=== PATIENT | male | born 1960 | race Caucasian/White ===

== ENCOUNTER → 2019-05-01 11:49 | Outpatient (BNVA) | payer MEDICAID, SELFPAY | PROVIDERS: Visit Provider Nurse Practitioner Family | DX: K21.9 Gastro-esophageal reflux disease without esophagitis (principal); E78.5 Hyperlipidemia, unspecified | CPT/HCPCS: 80053; 80061; 85025 ==

== ENCOUNTER 2019-05-16 08:53 | Day surgery (SDC) | payer MEDICAID, SELFPAY ==
[2019-05-15 08:24] VITALS: BMI 30.2
--- NOTE | 2019-05-16 09:09 | ANES.PREANE2 ---
Pre-Anesthetic Assessment Pre-Anesthetic Assessment: Height/Weight: Height 1.73 m Weight 90.265 kg Preop Diagnosis: epigastric pain Proposed Procedure: Operation Date: 05/16/19 09:45 Proposed Procedures p EGD 87140 R10.11(Not Applicable) - Stuart Zaragoza MD Familial anesthetic complications: none Was Beta Rti taken within 24 hours: Yes Last Intake: 06:30 Social: Social History: Alcohol (daily) and Tobacco Exam: Pre-Anes Outpt Exam: alert, oriented x 3, clear to auscultation bilaterally and regular rate & rhythm Airway: Submandibular: WNL Cervical ROM: WNL MP: 2 (full pina) Dentition: Chipped History/ROS: No significant history except as noted Pulmonary: Pulmonary: COPD and SOB CV/HEM: CV/HEM: HTN : : None reported Hepatic: Hepatic: None reported GI: GI: GERD and PUD Metabolic: Metabolic: Hyperlipidemia Musc/skel: Musc/skel: Lower Back Pain Neuropsych: Neuropsych: Bipolar Anesthetic Plan: ASA status: 2 Anesthesia: Anesthesia Evaluation and MAC Risk of > 500 ml blood loss (7ml/kg in children): No PFSH Anesthesia PFSH: Social History Smoking and tobacco status: current every day smoker cigarettes Packs smoked per day: 1.5 Years cigarettes smoked: 30 Alcohol intake: current Alcohol intake frequency: 3 or more drinks per day Alcohol type: beer Lives independently: Yes Household members: spouse Housing: House Marital status: Current occupational status: disabled History of recent travel: No Current gender identity: Male Data Anesthesia Cardiac Studies: No Data to Display
--- NOTE | 2019-05-16 09:11 | W.PM.OPSUD ---
Surgery/Procedure H&P Update DATE OF PROCEDURE: May 16, 2019 DATE H&P PERFORMED: 05/13/19 PREOP DIAGNOSIS: b PLANNED PROCEDURE: Operation Date: 05/16/19 09:45 Proposed Procedures p EGD 54471 R10.11(Not Applicable) - Stuart Zaragoza MD
[2019-05-16 09:17] VITALS: BP 153/83; PULSE 99; RESP 18; TEMP 36.4; O2SAT 97
[2019-05-16] MEDS: sodium chloride 0.9% 1,000 ML 30 ML (09:19)
[2019-05-16 10:12] VITALS: BP 117/77; PULSE 104; RESP 16; TEMP 37.1; O2SAT 99
--- NOTE | 2019-05-16 10:20 | ANE.PACU2 ---
 Inpatient post-anesthesia follow up: Airway intact: Yes Vital signs: Temperature 98.8 F Pulse Rate 104 Respiratory Rate 16 Blood Pressure 117/77 Pulse Oximetry 99 Oxygen Delivery Me thod Room Air Oxygen Flow Rate Fraction of Inspir ed Oxygen Hydration adequate: Yes Nausea and vomiting: No Mental status: Baseline
[2019-05-16 10:23] VITALS: BP 122/84; PULSE 90; RESP 18; O2SAT 97
== END 2019-05-16 10:33 | disposition home or self-care (01) ==
PROVIDERS: Visit Provider Internal Medicine
PROC: 0DJ08ZZ Inspection of Upper Intestinal Tract, Via Natural or Artificial Opening Endoscopic (ICD-10-PCS; CPT 43235; principal; 2019-05-16 09:45)
DX: R10.13 Epigastric pain (principal); I10 Essential (primary) hypertension; Z87.11 Personal history of peptic ulcer disease; Z82.49 Family history of ischemic heart disease and other diseases of the circulatory system; Z83.3 Family history of diabetes mellitus; F17.210 Nicotine dependence, cigarettes, uncomplicated; J44.9 Chronic obstructive pulmonary disease, unspecified; K21.9 Gastro-esophageal reflux disease without esophagitis; E78.5 Hyperlipidemia, unspecified
CPT/HCPCS: 12345; 43235; J2704; J7030

== ENCOUNTER 2019-05-30 10:26 | Outpatient (CLI) | payer MEDICAID, SELFPAY ==
--- NOTE | 2019-05-30 10:15 | US_ITS ---
WS: [id number] Gallbladder ultrasound, 05/30/2019 Clinical Data: Right upper quadrant pain Comparison: Gallbladder ultrasound, 07/10/2018. Findings: The gallbladder shows no sludge or stone. The wall measures 0.2 cm with no pericholecystic fluid. The common bile duct is 0.4 cm and there are no intrahepatic ductal abnormalities. Liver shows no cysts, masses or dilated intrahepatic ducts. The liver measures 11.17 cm in greatest A P diameter. There is fatty infiltration. The pancreas is not obscured by overlying bowel gas, and no cyst, pseudocyst, or evidence of pancreat itis is noted. Right kidney measures 4.93 x 5.26 x 8.7 cm and no cyst, masses or hydronephrosis can be seen. The aorta and inferior vena cava show no vascular abnormalities. US/US gall bladder [id number] Impression: Negative gallbladder.
== END 2019-05-30 10:27 | disposition home or self-care (01) ==
PROVIDERS: Family Provider Family Medicine; PCP Family Medicine; Visit Provider Internal Medicine
DX: R10.11 Right upper quadrant pain (principal); R10.13 Epigastric pain
CPT/HCPCS: 76705

== ENCOUNTER → 2019-08-27 16:20 | Outpatient (BNVA) | payer MEDICAID, SELFPAY | PROVIDERS: Family Provider Family Medicine; PCP Family Medicine; Visit Provider Nurse Practitioner | DX: Z87.891 Personal history of nicotine dependence (principal); R19.7 Diarrhea, unspecified | CPT/HCPCS: 71046; 74018; 81000 ==

== ENCOUNTER 2019-08-29 14:00 | Outpatient (CLI) | payer MEDICAID, SELFPAY ==
[2019-08-29 14:35] LABS: Basophils % 0.2 %; Eosinophils % 0.5 %; Hematocrit 36.7 % (42.0-52.0); Hemoglobin 11.6 g/dL (11.7-16.6); Lymphocytes # 1.3 10^3/uL (0.8-4.8); Lymphocytes % 23.1 %; Mean Corpuscular HGB Conc 31.6 g/dL (30.0-36.0); Mean Corpuscular Hemoglobin 33.3 pg (28.0-34.0); Mean Corpuscular Volume 105.5 fL (80-94); Mean Platelet Volume 8.9 fL (7.4-10.4); Monocytes # 0.7 10^3/uL (0.2-0.9); Monocytes % 11.2 %; Neutrophils # 3.8 10^3/uL (1.8-7.7); Neutrophils % 64.5 %; Nucleated Red Blood Cells % 0.5 %; Platelet Count 193 10^3/cmm (130-400); Red Blood Count 3.48 10^6/uL (4.1-5.3); Red Cell Distribution Width 12.2 % (12.1-15.1); White Blood Count 5.8 10^3/uL (4.0-10.0)
[2019-08-29 14:55] LABS: Albumin Level 4.5 g/dL (3.5-5.2); Alkaline Phosphatase 68 IU/L (40-130); Chloride 100 mmol/L (98-107); Potassium 4.3 mmol/L (3.5-5.1); Sodium 134 mmol/L (136-145)
[2019-08-29 17:02] LABS: Alanine Aminotransferase 65 U/L (0-41); Anion Gap 21.3 (5-19); Aspartate Amino Transferase 76 U/L (0-40); Blood Urea Nitrogen 15 mg/dL (6-20); Calcium 9.2 mg/dL (8.5-10.5); Carbon Dioxide 17 mmol/L (22-29); Chol HDL Ratio 2.14 mg/dL (1.0-5.00); Cholesterol 163 mg/dL (0-200); Globulin 2.8 g/dL (1.3-4.6); Glomerular Filtration Rate 69.2 mL/min (90-130); Glucose 102 mg/dL (65-115); HDL Cholesterol 76 mg/dL (60-100); LDL Cholesterol Calculated 61 mg/dL (50-129); Magnesium 1.7 mg/dL (1.7-2.3); Osmolality Calculated 274 mOsm/kg (285-295); Total Bilirubin 0.3 mg/dL (0.15-1.2); Total Protein 7.3 g/dL (6.6-8.7); Triglycerides 131 mg/dL (0-150); VLDL Cholestrol Calculation 26 mg/dL (0-30); Vitamin B12 429 pg/mL (232-1245)
[2019-08-29 17:03] LABS: 25 Hydroxy Vitamin D 11 ng/mL (30-100)
== END 2019-08-29 14:01 | disposition home or self-care (01) ==
LOC: LAB 14:05
PROVIDERS: PCP Nurse Practitioner; Visit Provider Nurse Practitioner
DX: K21.9 Gastro-esophageal reflux disease without esophagitis (principal); Z87.891 Personal history of nicotine dependence
CPT/HCPCS: 36415; 80053; 80061; 82306; 82607; 83735; 85025

== ENCOUNTER 2019-10-07 13:15 | Outpatient (CLI) | payer MEDICAID, SELFPAY ==
[2019-10-07 13:52] LABS: Basophils % 0.2 %; Eosinophils % 0.8 %; Hematocrit 29.1 % (42.0-52.0); Hemoglobin 9.9 g/dL (11.7-16.6); Lymphocytes # 0.8 10^3/uL (0.8-4.8); Lymphocytes % 16.8 %; Mean Corpuscular Hemoglobin 34.4 pg (28.0-34.0); Monocytes # 0.4 10^3/uL (0.2-0.9); Neutrophils # 3.55 10^3/uL (1.8-7.7); Neutrophils % 72.8 %; Nucleated Red Blood Cells % 0 %; Platelet Count 184 10^3/cmm (130-400); Red Blood Count 2.88 10^6/uL (4.1-5.3); Red Cell Distribution Width 11.9 % (12.1-15.1); White Blood Count 4.9 10^3/uL (4.0-10.0)
[2019-10-07 14:27] LABS: Alanine Aminotransferase 48 U/L (0-41); Albumin Level 4.1 g/dL (3.5-5.2); Alkaline Phosphatase 59 IU/L (40-130); Anion Gap 16.3 (5-19); Aspartate Amino Transferase 24 U/L (0-40); Blood Urea Nitrogen 6 mg/dL (6-20); Calcium 8.7 mg/dL (8.5-10.5); Carbon Dioxide 19 mmol/L (22-29); Chloride 98 mmol/L (98-107); Globulin 2.3 g/dL (1.3-4.6); Glucose 85 mg/dL (65-115); Osmolality Calculated 263 mOsm/kg (285-295); Potassium 4.3 mmol/L (3.5-5.1); Sodium 129 mmol/L (136-145); Thyroid Stimulating Hormone 0.81 uIU/mL (0.27-4.20); Total Bilirubin 0.2 mg/dL (0.15-1.2); Total Protein 6.4 g/dL (6.6-8.7)
[2019-10-07 14:36] LABS: Hepatitis A Antibody IgM Non-Reactive (Nonreactive); Hepatitis B Core AB, Total Non-Reactive (Nonreactive); Hepatitis B Surface AB 3.5 (0-8.5); Hepatitis B Surface Antigen Non-Reactive (Nonreactive); Hepatitis C Virus Antibody Non-Reactive (Nonreactive)
== END 2019-10-07 13:16 | disposition home or self-care (01) ==
LOC: LAB 13:20
PROVIDERS: PCP Nurse Practitioner; Visit Provider Nurse Practitioner
DX: D69.6 Thrombocytopenia, unspecified (principal); E87.1 Hypo-osmolality and hyponatremia; Z11.59 Encounter for screening for other viral diseases
CPT/HCPCS: 80053; 84443; 85025; 86705; 86706; 86709; 86803; 87340

== ENCOUNTER → 2019-10-09 14:43 | Outpatient (BNVA) | payer MEDICAID, SELFPAY | PROVIDERS: PCP Nurse Practitioner; Visit Provider Nurse Practitioner Family | DX: M79.89 Other specified soft tissue disorders (principal); D69.6 Thrombocytopenia, unspecified; L03.119 Cellulitis of unspecified part of limb; M79.604 Pain in right leg; M79.605 Pain in left leg | CPT/HCPCS: 80053; 85025 ==

== ENCOUNTER 2020-02-26 12:02 | Outpatient (CLI) | payer MEDICAID, SELFPAY ==
[2020-02-26 12:59] LABS: 25 Hydroxy Vitamin D 48 ng/mL (30-100); Alanine Aminotransferase 44 U/L (0-41); Albumin Level 4.4 g/dL (3.5-5.2); Alkaline Phosphatase 114 IU/L (40-130); Aspartate Amino Transferase 59 U/L (0-40); Blood Urea Nitrogen 20 mg/dL (6-20); Carbon Dioxide 16 mmol/L (22-29); Chloride 92 mmol/L (98-107); Chol HDL Ratio 1.64 mg/dL (1.0-5.00); Cholesterol 154 mg/dL (0-200); Globulin 2.6 g/dL (1.3-4.6); Glomerular Filtration Rate 18.8 mL/min (90-130); Glucose 106 mg/dL (65-115); HDL Cholesterol 94 mg/dL (60-100); LDL Cholesterol Calculated 44 mg/dL (50-129); Osmolality Calculated 257 mOsm/kg (285-295); Sodium 122 mmol/L (136-145); Total Bilirubin 0.5 mg/dL (0.15-1.2); Triglycerides 79 mg/dL (0-150); VLDL Cholestrol Calculation 16 mg/dL (0-30)
[2020-02-26 13:22] LABS: Basophils % 0.1 %; Eosinophils % 0.4 %; Hematocrit 33.8 % (42.0-52.0); Hemoglobin 11.5 g/dL (11.7-16.6); Lymphocytes # 1.2 10^3/uL (0.8-4.8); Lymphocytes % 17.4 %; Mean Corpuscular Hemoglobin 32.7 pg (28.0-34.0); Mean Platelet Volume 10.2 fL (7.4-10.4); Monocytes # 0.7 10^3/uL (0.2-0.9); Monocytes % 9.3 %; Neutrophils % 72.2 %; Nucleated Red Blood Cells % 0 %; Platelet Count 222 10^3/cmm (130-400); Red Blood Count 3.52 10^6/uL (4.1-5.3); White Blood Count 7.1 10^3/uL (4.0-10.0)
== END 2020-02-26 12:03 | disposition home or self-care (01) ==
LOC: LAB 12:05
PROVIDERS: PCP Nurse Practitioner; Visit Provider Nurse Practitioner
DX: E78.2 Mixed hyperlipidemia (principal); E55.9 Vitamin D deficiency, unspecified; D69.6 Thrombocytopenia, unspecified
CPT/HCPCS: 36415; 80053; 80061; 82306; 85025

== ENCOUNTER → 2020-05-31 14:05 | Outpatient (BNVA) | payer MEDICAID, SELFPAY | PROVIDERS: PCP Nurse Practitioner; Visit Provider Nurse Practitioner | DX: R10.13 Epigastric pain (principal) | CPT/HCPCS: 82270 ==

== ENCOUNTER → 2020-08-19 16:26 | Outpatient (BNVA) | payer MEDICAID, SELFPAY | PROVIDERS: PCP Nurse Practitioner; Visit Provider Nurse Practitioner | DX: K92.1 Melena (principal); R11.0 Nausea; R19.5 Other fecal abnormalities; R19.7 Diarrhea, unspecified | CPT/HCPCS: 87493; 87506; 89125 ==

== ENCOUNTER → 2020-12-02 14:41 | Outpatient (BNVA) | payer MEDICAID, SELFPAY | PROVIDERS: PCP Nurse Practitioner; Visit Provider Nurse Practitioner | DX: R19.5 Other fecal abnormalities (principal) | CPT/HCPCS: 82270; 87506 ==

== ENCOUNTER → 2020-12-08 13:16 | Outpatient (BNVA) | payer MEDICAID, SELFPAY | PROVIDERS: PCP Nurse Practitioner; Visit Provider Nurse Practitioner | DX: I10 Essential (primary) hypertension (principal) | CPT/HCPCS: 80053; 85025 ==

== ENCOUNTER → 2021-02-21 14:36 | Outpatient (BNVA) | payer MEDICAID, SELFPAY | PROVIDERS: PCP Nurse Practitioner; Visit Provider Nurse Practitioner | DX: I10 Essential (primary) hypertension (principal) | CPT/HCPCS: 87493 ==

== ENCOUNTER 2021-04-06 10:21 | Emergency (ER) | payer MEDICAID, SELFPAY ==
[2021-04-06 12:30] VITALS: BP 139/88; PULSE 99; RESP 18; TEMP 36.9; O2SAT 99; BMI 26.1
--- NOTE | 2021-04-06 12:51 | ED_ITS ---
Documented by User: [facility] 04/06/21 12:59 HPI - General Adult General: Chief complaint: Abdominal Pain Stated complaint: CDF Time Seen by Provider: 04/06/21 12:45 History of Present Illness: HPI narrative: Patient presents here with history of chronic C. difficile. Patient's had for 2 years. Patient is requesting a fecal transplant if that is possible. Patient no acute distress does not have any increase in his symptoms. Does have diarrhea which he has had on a regular basis. Onset (ago): year(s) Associated symptoms: Reports other (Chronic diarrhea); Deny chest pain, dyspnea, headache(s), nausea, rash or vomiting Review of Systems Const: Denies: fever(s), chills or body aches Eyes: Denies: change in vision or blurry vision ENMT: Denies: throat pain or nasal congestion Card: Denies: chest pain or dyspnea on exertion Resp: Denies: dyspnea, productive cough or non-productive cough GI: Reports: diarrhea (Chronic, wonder if they could be seen today maybe get a referral for fecal ); Denies: abdominal pain, nausea or vomiting : Denies: difficulty urinating Musc: Denies: extremity pain Skin/Breast: Denies: rash Neuro: Denies: headache(s) Psych: Denies: anxiety or depression Esequiel/Lymph: Denies: easy bruising PFSH ED PFSH: Medical History (Updated 04/06/21 @ 12:49 by [facility]) Alcohol abuse Bipolar 1 disorder DDD (degenerative disc disease) Hypertension Mixed hyperlipidemia CHANDRIKA (obstructive sleep apnea) PUD (peptic ulcer disease) Thrombocytopenia Vitamin D deficiency Surgical History No pertinent past surgical history Family History Father Diabetes Rheumatoid arthritis Hypertension Grandfather Diabetes Grandmother Cancer bone Mother Heart disease Social History Second hand smoke exposure: Yes Smoking risk assessment/counseling performed?: Yes Alcohol intake: current Alcohol intake frequency: 3 or more drinks per day Alcohol type: beer Desire information about alcohol rehabilitation?: No Counseling given: No Desire information about substance/drug rehabilitation?: No Counseling given: No Adopted: No Caregiver/support person: No Lives independently: Yes Household members: spouse Housing: House Marital status: Number of children: 3 service: No Current occupational status: disabled Current occupational exposures/hazards: No History of recent travel: No Current gender identity: Male Physical Exam Const: COMMON NORMALS: no acute distress GENERAL APPEARANCE: cooperative Resp: COMMON NORMALS: normal respiratory effort EFFORT & INSPECTION: Yes able to speak in complete sentences GI: COMMON NORMALS: Normal to inspection, nondistended, normoactive bowel sounds present Psych: COMMON NORMALS: mental status grossly normal Course Vital Signs: Vital signs: Vital Signs Temperature 98.4 F 04/06/21 12:30 Pulse Rate 99 04/06/21 12:30 Respiratory Rate 18 04/06/21 12:30 Blood Pressure 139/88 04/06/21 12:30 Pulse Oximetry 99 04/06/21 12:30 MDM - General Adult MDM Narrative Medical decision making narrative: Patient presents here with 2-year history of C. difficile. Has been on antibiotics in the past with some relief. Patient has no change in symptoms from the previous 2 years but they have been reading some clinic Internet and about getting a fecal transplant and they are interested in seeing a provider today stating to referral for fecal transplant. Patient no acute distress not having abdominal pain just has chronic diarrhea. There is go to [facility]. Patient was placed on antibiotics and antidiarrheal and encouraged follow-up with primary care for possible referral. Patient has seen gastroenterology twice in the last 2 years. Discharge Plan Discharge Patient Disposition: Home Clinical Impression: Clostridium difficile colitis Condition: Stable Prescriptions: New Lomotil 2.5-0.025 mg tablet 1 tab PO TID PRN (Reason: diarrhea) Qty: 14 0RF clindamycin HCl 300 mg capsule 300 mg PO Q8H 7 Days Qty: 21 0RF Bactrim DS 800-160 mg tablet 1 tab PO BID 7 Days Qty: 14 0RF No Action acetaminophen [Tylenol Extra Strength] 500 mg tablet 500 mg PO Q6H PRN (Reason: Pain) 0RF Xarelto 10 mg tablet 10 mg PO DAILY Qty: 30 2RF Hold Instructions: Bleeding albuterol sulfate [ProAir HFA] 90 mcg/actuation HFA aerosol inhaler 2 puff inhalation Q6H PRN (Reason: shortness of breath or wheezing) Qty: 18 2RF cilostazol 100 mg tablet 100 mg PO BID Qty: 60 2RF ergocalciferol (vitamin D2) 1,250 mcg (50,000 unit) capsule 1,250 mcg PO .weekly Qty: 4 2RF lisinopril 20 mg tablet 20 mg PO DAILY Qty: 30 2RF metoprolol succinate 25 mg tablet extended release 24 hr 25 mg PO DAILY Qty: 30 2RF Vitamin Plus Low Iron 27 mg iron- 1 mg tablet 1 tab PO DAILY Qty: 30 2RF rosuvastatin 40 mg tablet 40 mg PO DAILY Qty: 30 2RF sertraline [Zoloft] 50 mg tablet 50 mg PO DAILY Qty: 30 2RF quetiapine 300 mg tablet 300 mg PO DAILY Qty: 30 2RF sodium chloride 1 gram tablet 1,000 mg PO TID Qty: 90 2RF sucralfate [Carafate] 1 gram tablet 1 g PO TID Qty: 90 2RF pantoprazole 40 mg tablet,delayed release (DR/EC) 40 mg PO DAILY Qty: 30 2RF Discharge Orders: Discharge ED (Routine); Ordered 04/06/21 Ordered By: Jr Gomes Referrals: Corinna De León, [facility] [Primary Care Provider] - Discharge Diet: Advance as tolerated Discharge Activity: Resume usual activity Activity Restrictions/Additional Instructions: Follow-up with medical provider as directed. Take medications as prescribed. Return to the ER or your medical provider if condition worsens. Please read and understand discharge instructions. If any questions ask please. Coding Level of Care Code ED Parking Inspector for Chg Fwd Exam Expanded Problem Focused Documented by User: Kristian Guillory DO 04/12/21 06:17 HPI - General Adult General: Chief complaint: Abdominal Pain Stated complaint: CDF Time Seen by Provider: 04/06/21 12:45 PFSH ED PFSH: Medical History (Updated 04/06/21 @ 12:49 by [facility]) Alcohol abuse Bipolar 1 disorder DDD (degenerative disc disease) Hypertension Mixed hyperlipidemia CHANDRIKA (obstructive sleep apnea) PUD (peptic ulcer disease) Thrombocytopenia Vitamin D deficiency Surgical History No pertinent past surgical history Family History Father Diabetes Rheumatoid arthritis Hypertension Grandfather Diabetes Grandmother Cancer bone Mother Heart disease Social History Second hand smoke exposure: Yes Smoking risk assessment/counseling performed?: Yes Alcohol intake: current Alcohol intake frequency: 3 or more drinks per day Alcohol type: beer Desire information about alcohol rehabilitation?: No Counseling given: No Desire information about substance/drug rehabilitation?: No Counseling given: No Adopted: No Caregiver/support person: No Lives independently: Yes Household members: spouse Housing: House Marital status: Number of children: 3 service: No Current occupational status: disabled Current occupational exposures/hazards: No History of recent travel: No Current gender identity: Male Course Vital Signs: Vital signs: Vital Signs Temperature 98.4 F 04/06/21 12:30 Pulse Rate 99 04/06/21 12:30 Respiratory Rate 18 04/06/21 12:30 Blood Pressure 139/88 04/06/21 12:30 Pulse Oximetry 99 04/06/21 12:30 MDM - General Adult MDM Narrative Medical decision making narrative: Chart reviewed and patient discussed with midlevel. Agree with assessment and plan. Discharge Plan Discharge Patient Disposition: Home Clinical Impression: Clostridium difficile colitis Condition: Stable Prescriptions: New Lomotil 2.5-0.025 mg tablet 1 tab PO TID PRN (Reason: diarrhea) Qty: 14 0RF clindamycin HCl 300 mg capsule 300 mg PO Q8H 7 Days Qty: 21 0RF Bactrim DS 800-160 mg tablet 1 tab PO BID 7 Days Qty: 14 0RF No Action acetaminophen [Tylenol Extra Strength] 500 mg tablet 500 mg PO Q6H PRN (Reason: Pain) 0RF Xarelto 10 mg tablet 10 mg PO DAILY Qty: 30 2RF Hold Instructions: Bleeding albuterol sulfate [ProAir HFA] 90 mcg/actuation HFA aerosol inhaler 2 puff inhalation Q6H PRN (Reason: shortness of breath or wheezing) Qty: 18 2RF cilostazol 100 mg tablet 100 mg PO BID Qty: 60 2RF ergocalciferol (vitamin D2) 1,250 mcg (50,000 unit) capsule 1,250 mcg PO .weekly Qty: 4 2RF lisinopril 20 mg tablet 20 mg PO DAILY Qty: 30 2RF metoprolol succinate 25 mg tablet extended release 24 hr 25 mg PO DAILY Qty: 30 2RF Vitamin Plus Low Iron 27 mg iron- 1 mg tablet 1 tab PO DAILY Qty: 30 2RF rosuvastatin 40 mg tablet 40 mg PO DAILY Qty: 30 2RF sertraline [Zoloft] 50 mg tablet 50 mg PO DAILY Qty: 30 2RF quetiapine 300 mg tablet 300 mg PO DAILY Qty: 30 2RF sodium chloride 1 gram tablet 1,000 mg PO TID Qty: 90 2RF sucralfate [Carafate] 1 gram tablet 1 g PO TID Qty: 90 2RF pantoprazole 40 mg tablet,delayed release (DR/EC) 40 mg PO DAILY Qty: 30 2RF Discharge Orders: Discharge ED (Routine); Ordered 04/06/21 Ordered By: Jr Gomes Referrals: Corinna De León, [facility] [Primary Care Provider] - Discharge Diet: Advance as tolerated Discharge Activity: Resume usual activity Activity Restrictions/Additional Instructions: Follow-up with medical provider as directed. Take medications as prescribed. Return to the ER or your medical provider if condition worsens. Please read and understand discharge instructions. If any questions ask please. Coding Level of Care Code ED Parking Inspector for Chg Fwd Exam Expanded Problem Focused
== END 2021-04-06 13:05 | disposition home or self-care (01) ==
PROVIDERS: Emergency Provider Nurse Practitioner Family; PCP Nurse Practitioner
DX: A04.72 Enterocolitis due to Clostridium difficile, not specified as recurrent (principal); I10 Essential (primary) hypertension; E78.2 Mixed hyperlipidemia; G47.33 Obstructive sleep apnea (adult) (pediatric); K27.9 Peptic ulcer, site unspecified, unspecified as acute or chronic, without hemorrhage or perforation; E55.9 Vitamin D deficiency, unspecified; Z79.01 Long term (current) use of anticoagulants
CPT/HCPCS: 12345; 99281

== ENCOUNTER → 2021-07-11 15:51 | Outpatient (BNVA) | payer MEDICAID, SELFPAY | PROVIDERS: PCP Nurse Practitioner; Visit Provider Nurse Practitioner | DX: I10 Essential (primary) hypertension (principal) | CPT/HCPCS: 81000 ==

== ENCOUNTER 2021-07-12 13:01 | Outpatient (CLI) | payer MEDICAID, SELFPAY ==
[2021-07-12 13:43] LABS: Basophils % 0.2 %; Eosinophils # 0.1 10^3/uL (0.0-0.8); Eosinophils % 1.2 %; Hematocrit 31.3 % (42.0-52.0); Hemoglobin 9.8 g/dL (11.7-16.6); Lymphocytes # 1.2 10^3/uL (0.8-4.8); Lymphocytes % 20.3 %; Mean Corpuscular HGB Conc 31.3 g/dL (30.0-36.0); Mean Corpuscular Hemoglobin 33.9 pg (28.0-34.0); Mean Corpuscular Volume 108.3 fl (80-94); Mean Platelet Volume 9.9 fL (7.4-10.4); Monocytes # 0.4 10^3/uL (0.2-0.9); Monocytes % 6.3 %; Neutrophils % 71.3 %; Nucleated Red Blood Cells % 0 %; Platelet Count 149 10^3/cmm (130-400); Red Blood Count 2.89 10^6/uL (4.1-5.3); Red Cell Distribution Width 13.5 % (12.1-15.1)
[2021-07-12 14:27] LABS: 25 Hydroxy Vitamin D 53 ng/mL (30-100); Alanine Aminotransferase 54 U/L (0-41); Albumin Level 4.4 g/dL (3.5-5.2); Alkaline Phosphatase 101 IU/L (40-130); Aspartate Amino Transferase 61 U/L (0-40); Blood Urea Nitrogen 28 mg/dL (6-20); Calcium 8.3 mg/dL (8.5-10.5); Carbon Dioxide 14 mmol/L (22-29); Chloride 106 mmol/L (98-107); Glomerular Filtration Rate 44.6 mL/min (90-130); Glucose 78 mg/dL (65-115); Osmolality Calculated 284 mOsm/kg (285-295); Sodium 135 mmol/L (136-145); Thyroid Stimulating Hormone 1.37 uIU/mL (0.27-4.20); Total Bilirubin 0.2 mg/dL (0.15-1.2); Total Protein 7.4 g/dL (6.6-8.7)
== END 2021-07-12 13:02 | disposition home or self-care (01) ==
LOC: LAB 13:03
PROVIDERS: PCP Nurse Practitioner; Visit Provider Nurse Practitioner
DX: E55.9 Vitamin D deficiency, unspecified (principal); I10 Essential (primary) hypertension
CPT/HCPCS: 36415; 80053; 82306; 84443; 85025

== ENCOUNTER → 2021-08-31 11:08 | Outpatient (BNVA) | payer MEDICAID, SELFPAY | PROVIDERS: PCP Nurse Practitioner; Visit Provider Nurse Practitioner | DX: J98.01 Acute bronchospasm (principal); I73.9 Peripheral vascular disease, unspecified; N18.30 Chronic kidney disease, stage 3 unspecified; E55.9 Vitamin D deficiency, unspecified; I10 Essential (primary) hypertension; K21.9 Gastro-esophageal reflux disease without esophagitis; F10.10 Alcohol abuse, uncomplicated; F31.9 Bipolar disorder, unspecified; E78.2 Mixed hyperlipidemia; R10.13 Epigastric pain; E87.1 Hypo-osmolality and hyponatremia | CPT/HCPCS: 81000 ==

== ENCOUNTER 2021-12-02 11:42 | Outpatient (CLI) | payer MEDICAID, SELFPAY ==
[2021-12-02 12:29] LABS: Basophils % 0.2 %; Eosinophils % 0.8 %; Hematocrit 33.1 % (42.0-52.0); Hemoglobin 10.5 g/dL (11.7-16.6); Lymphocytes % 19.5 %; Mean Corpuscular HGB Conc 31.7 g/dL (30.0-36.0); Mean Corpuscular Hemoglobin 33.1 pg (28.0-34.0); Mean Corpuscular Volume 104.4 fl (80-94); Mean Platelet Volume 10.4 fL (7.4-10.4); Monocytes # 0.5 10^3/uL (0.2-0.9); Monocytes % 9.2 %; Neutrophils # 3.72 10^3/uL (1.8-7.7); Neutrophils % 69.7 %; Nucleated Red Blood Cells % 0 %; Platelet Count 161 10^3/cmm (130-400); Red Blood Count 3.17 10^6/uL (4.1-5.3); Red Cell Distribution Width 13.2 % (12.1-15.1); White Blood Count 5.3 10^3/uL (4.0-10.0)
[2021-12-02 12:41] LABS: Alanine Aminotransferase 53 U/L (0-41); Albumin Level 4.2 g/dL (3.5-5.2); Alkaline Phosphatase 113 U/L (40-130); Anion Gap 18.7 (5-19); Aspartate Amino Transferase 51 U/L (0-40); Blood Urea Nitrogen 21 mg/dL (6-20); Calcium 8.7 mg/dL (8.5-10.5); Carbon Dioxide 15 mmol/L (22-29); Chloride 104 mmol/L (98-107); Chol HDL Ratio 1.65 mg/dL (1.0-5.00); Cholesterol 181 mg/dL (0-200); Globulin 2.9 g/dL (1.3-4.6); Glomerular Filtration Rate 44.5 mL/min (90-130); Glucose 107 mg/dL (65-115); HDL Cholesterol 110 mg/dL (60-100); LDL Cholesterol Calculated 56 mg/dL (50-129); Osmolality Calculated 281 mOsm/kg (285-295); Potassium 3.7 mmol/L (3.5-5.1); Sodium 134 mmol/L (136-145); Total Bilirubin 0.3 mg/dL (0.15-1.2); Total Protein 7.1 g/dL (6.6-8.7); Triglycerides 76 mg/dL (0-150); VLDL Cholestrol Calculation 15 mg/dL (0-30)
[2021-12-02 12:58] LABS: Iron 105 ug/dL (59-158); Percent Saturation 38.7 % (20-50); Total Iron Binding Capacity 271 mcg/dl; Unsaturated Iron Binding 166 ug/dL (112-347)
[2021-12-02 13:15] LABS: Vitamin B12 602 pg/mL (232-1245)
== END 2021-12-02 11:43 | disposition home or self-care (01) ==
LOC: LAB 11:47
PROVIDERS: PCP Nurse Practitioner; Visit Provider Nurse Practitioner
DX: D64.9 Anemia, unspecified (principal); I10 Essential (primary) hypertension; E61.1 Iron deficiency
CPT/HCPCS: 80053; 80061; 82607; 83540; 83550; 85025

== ENCOUNTER → 2021-12-06 11:16 | Outpatient (BNVA) | payer MEDICAID, SELFPAY | PROVIDERS: PCP Nurse Practitioner; Visit Provider Nurse Practitioner | DX: J98.01 Acute bronchospasm (principal); I73.9 Peripheral vascular disease, unspecified; N18.30 Chronic kidney disease, stage 3 unspecified; E55.9 Vitamin D deficiency, unspecified; I10 Essential (primary) hypertension; R00.0 Tachycardia, unspecified; K21.9 Gastro-esophageal reflux disease without esophagitis; F10.10 Alcohol abuse, uncomplicated; F31.9 Bipolar disorder, unspecified; E78.2 Mixed hyperlipidemia; E87.1 Hypo-osmolality and hyponatremia; R10.13 Epigastric pain; J30.89 Other allergic rhinitis | CPT/HCPCS: 81000 ==

== ENCOUNTER → 2022-03-28 11:41 | Outpatient (BNVA) | payer MEDICAID, SELFPAY | PROVIDERS: PCP Nurse Practitioner; Visit Provider Nurse Practitioner | DX: I10 Essential (primary) hypertension (principal); F31.9 Bipolar disorder, unspecified; I73.9 Peripheral vascular disease, unspecified; N18.30 Chronic kidney disease, stage 3 unspecified; J98.01 Acute bronchospasm; J30.89 Other allergic rhinitis; E55.9 Vitamin D deficiency, unspecified; K21.9 Gastro-esophageal reflux disease without esophagitis; R00.0 Tachycardia, unspecified; R10.13 Epigastric pain; E78.2 Mixed hyperlipidemia; F10.10 Alcohol abuse, uncomplicated; E87.1 Hypo-osmolality and hyponatremia | CPT/HCPCS: 81000 ==

== ENCOUNTER → 2022-06-27 12:06 | Outpatient (BNVA) | payer MEDICAID, SELFPAY | PROVIDERS: PCP Nurse Practitioner; Visit Provider Nurse Practitioner | DX: J98.01 Acute bronchospasm (principal); I73.9 Peripheral vascular disease, unspecified; N18.30 Chronic kidney disease, stage 3 unspecified; E55.9 Vitamin D deficiency, unspecified; J30.89 Other allergic rhinitis; R10.13 Epigastric pain; I10 Essential (primary) hypertension; R00.0 Tachycardia, unspecified; K21.9 Gastro-esophageal reflux disease without esophagitis; F10.10 Alcohol abuse, uncomplicated; E78.2 Mixed hyperlipidemia; F31.9 Bipolar disorder, unspecified; E87.1 Hypo-osmolality and hyponatremia | CPT/HCPCS: 81000 ==

== ENCOUNTER 2022-10-27 12:52 | Outpatient (CLI) | payer MEDICAID, SELFPAY ==
[2022-10-27 13:09] LABS: Basophils % 0.3 %; Eosinophils # 0.1 10^3/uL (0.0-0.8); Eosinophils % 0.9 %; Hematocrit 33.3 % (42.0-52.0); Hemoglobin 10.8 g/dL (11.7-16.6); Lymphocytes # 1.6 10^3/uL (0.8-4.8); Lymphocytes % 22.8 %; Mean Corpuscular HGB Conc 32.4 g/dL (30.0-36.0); Mean Corpuscular Hemoglobin 34.1 pg (28.0-34.0); Monocytes # 0.5 10^3/uL (0.2-0.9); Monocytes % 6.9 %; Neutrophils # 4.63 10^3/uL (1.8-7.7); Neutrophils % 68.1 %; Nucleated Red Blood Cells % 0 %; Platelet Count 170 10^3/cmm (130-400); Red Blood Count 3.17 10^6/uL (4.1-5.3); Red Cell Distribution Width 14.9 % (12.1-15.1); White Blood Count 6.8 10^3/uL (4.0-10.0)
[2022-10-27 13:51] LABS: 25 Hydroxy Vitamin D 78 ng/mL (30-100); Alanine Aminotransferase 115 U/L (0-41); Albumin Level 4.1 g/dL (3.5-5.2); Alkaline Phosphatase 160 U/L (40-130); Aspartate Amino Transferase 124 U/L (0-40); Blood Urea Nitrogen 16 mg/dL (8-23); Calcium 9.6 mg/dL (8.5-10.5); Carbon Dioxide 15 mmol/L (22-29); Chloride 103 mmol/L (98-107); Chol HDL Ratio 1.62 mg/dL (1.0-5.00); Cholesterol 181 mg/dL (0-200); Globulin 2.9 g/dL (1.3-4.6); Glomerular Filtration Rate 56.3 mL/min (90-130); Glucose 96 mg/dL (65-115); HDL Cholesterol 112 mg/dL (60-100); LDL Cholesterol Calculated 50 mg/dL (50-129); Osmolality Calculated 277 mOsm/kg (285-295); Sodium 133 mmol/L (136-145); Thyroid Stimulating Hormone 1.28 uIU/mL (0.27-4.20); Total Bilirubin 0.3 mg/dL (0.15-1.2); Triglycerides 97 mg/dL (0-150); VLDL Cholestrol Calculation 19 mg/dL (0-30)
== END 2022-10-27 12:53 | disposition home or self-care (01) ==
PROVIDERS: PCP Nurse Practitioner; Visit Provider Nurse Practitioner
DX: E55.9 Vitamin D deficiency, unspecified (principal); N18.30 Chronic kidney disease, stage 3 unspecified
CPT/HCPCS: 80053; 80061; 82306; 84443; 85025

== ENCOUNTER 2023-03-21 09:07 | Outpatient (CLI) | payer MEDICAID, SELFPAY ==
--- NOTE | 2023-03-21 09:30 | USR_ITS ---
PROCEDURE INFORMATION: Exam: US Abdomen Complete Exam date and time: 03/21/2023 9:51 AM Age: 62 years old Clinical indication: Condition or disease; Other: Anemia; Additional info: D64.9 - anemia, unspecified TECHNIQUE: Imaging protocol: Real-time ultrasound of the abdomen with image documentation. Complete exam. COMPARISON: US abdomen limited 04150 07/10/2018 12:34 PM FINDINGS: Liver: No significant liver pathology. Gallbladder: No significant gallbladder pathology. Biliary ducts: Bile duct measures 6 mm at top limits of normal in size. Pancreas: Visualized pancreas is unremarkable. Right kidney: Right kidney is small in size measuring 6 cm in length. Left kidney measures 10.3 cm in length. Left kidney: See Right kidney finding. Spleen: Normal. No splenomegaly. Aorta: Normal. No aneurysm. Inferior vena cava: Normal. US/US abdomen complete* [id number] IMPRESSION: No acute pathology. Atrophic right kidney.
== END 2023-03-21 09:08 | disposition home or self-care (01) ==
LOC: RAD 09:07
PROVIDERS: PCP Nurse Practitioner; Visit Provider Nurse Practitioner
DX: D64.9 Anemia, unspecified (principal); R10.13 Epigastric pain; N26.1 Atrophy of kidney (terminal)
CPT/HCPCS: 76700

== ENCOUNTER → 2023-05-09 13:55 | Outpatient (BNVA) | payer MEDICAID, SELFPAY | PROVIDERS: PCP Nurse Practitioner; Visit Provider Nurse Practitioner | DX: J44.9 Chronic obstructive pulmonary disease, unspecified (principal); N18.30 Chronic kidney disease, stage 3 unspecified | CPT/HCPCS: 71046; 81000 ==

== ENCOUNTER → 2023-08-01 11:14 | Outpatient (BNVA) | payer MEDICAID, SELFPAY | PROVIDERS: PCP Nurse Practitioner; Visit Provider Nurse Practitioner | DX: K58.0 Irritable bowel syndrome with diarrhea (principal); J44.9 Chronic obstructive pulmonary disease, unspecified; J30.89 Other allergic rhinitis; I73.9 Peripheral vascular disease, unspecified; N18.30 Chronic kidney disease, stage 3 unspecified; E55.9 Vitamin D deficiency, unspecified; I10 Essential (primary) hypertension; R00.0 Tachycardia, unspecified; K21.9 Gastro-esophageal reflux disease without esophagitis; F10.10 Alcohol abuse, uncomplicated; F31.9 Bipolar disorder, unspecified; E78.2 Mixed hyperlipidemia; E87.1 Hypo-osmolality and hyponatremia; R10.13 Epigastric pain; N18.31 Chronic kidney disease, stage 3a; D64.9 Anemia, unspecified; E61.1 Iron deficiency | CPT/HCPCS: 80053; 80061; 81000; 83550; 84443; 85025 ==

== ENCOUNTER → 2023-10-24 13:54 | Outpatient (BNVA) | payer MEDICAID, SELFPAY | PROVIDERS: PCP Nurse Practitioner; Visit Provider Internal Medicine | DX: R07.9 Chest pain, unspecified (principal) | CPT/HCPCS: 93005 ==

== ENCOUNTER 2023-11-26 12:30 | Outpatient (CLI) | payer MEDICAID, SELFPAY ==
--- NOTE | 2023-11-26 12:45 | USCV_ITS ---
Marshall Quispe Age: 63 Gender: M : 1960 Exam Date: 11/26/2023 13:10 Ordering Phys: Vernon Pierce M.D ([email or web address]) Technologist: CT [place] [facility] [place]: Risk Factors: Previous Vascular Surgery: RIGHT LEFT BP: 110.0 / 75.00 BP: 106.0/ 81.00 0 0 Waveform Velocity (cm/s) Velocity (cm/s) Waveform Triphasic 89.5 Iliac Prox 72.3 11 Triphasic 84.7 Iliac Mid 63.5 Triphasic Triphasic 82.0 Iliac Distal 60.4 Triphasic Triphasic 82.0 UTILITY INSPECTOR 59.0 Triphasic Triphasic 81.0 SFA Prox 73.0 Triphasic Triphasic 61.0 SFA Mid 66.0 Triphasic Triphasic 60.0 SFA Dist 45.0 Triphasic Triphasic 60.0 POP 53.0 Triphasic Triphasic 33.0 SHOESHINER 69.0 Triphasic Triphasic 48.0 DPA 89.0 Triphasic JULIEN 1.0 1.1 FINDINGS No significant plaques or any unstable lesions. Resting JULIEN 1.1 on the right and 1.0 on the left. Normal Doppler flow velocities and waveforms CONCLUSIONS Normal resting ABIs bilaterally no evidence of any significant arterial obstruction, based on the above findings. Dr Carlos Patel MD [facility] (Electronically Signed) Final Date: 27 November 2023 09:35 S
--- NOTE | 2023-11-26 13:30 | USCV_ITS ---
Marshall Quispe Age: 63 Gender: M : 1960 Exam Date: 11/26/2023 12:47 Ordering Phys: Vernon Pierce M.D ([email or web address]) Technologist: CT Exam Location: [facility] [place] Indication: BP: 129 / 80 HR: 76 Rhythm: Sinus Technical Quality: Adequate MEASUREMENTS (Male / Female) Normal Values 2D ECHO LVOT Diameter 2.0 cm LV Ejection Fraction MOD 4C 70.0 % LV Ejection Fraction MOD 2C 63.6 % LV Ejection Fraction 2C AL 64.6 % LA Diameter 4.3 cm RA Systolic Volume 4C AL 66.1 ml RA Systolic Volume 4C MOD 63.7 ml LA Sys Volume AL 51.9 cm cubed LA Sys Volume Index AL 25.1 cm cubed/m squared Aorta at Sinotubular Diameter 3.1 cm IVC Diameter 2.5 cm M-MODE LA Ao Ratio MM 1.3 AV Cusp Separation MM 2.2 cm DOPPLER AV Peak Velocity 130.0 cm/s LVOT Peak Velocity 101.0 cm/s AV Area Cont Eq vti 2.9 cm squared AV Area Cont Eq pk 2.5 cm squared MV Peak Velocity 82.0 cm/s MV Area PHT 4.2 cm squared Mitral E to A Ratio 1.1 TR Peak Velocity 283.0 cm/s TR Peak Gradient 32.0 mmHg TV Peak E Velocity 72.0 cm/s Right Atrial Pressure 3.0 mmHg Pulmonary Artery Systolic Pressu 35.0 mmHg PV Peak Velocity 102.5 cm/s FINDINGS Left Ventricle Normal left ventricular size, systolic function and wall thickness, with no regional wall motion abnormalities. Left ventricular ejection fraction is estimated at 60 %. Grade II/IV diastolic dysfunction, moderately elevated filling pressures. Right Ventricle The right ventricle is normal in size and function. Right Atrium The right atrium is normal in size. Left Atrium Mildly increased left atrial size. Mitral Valve Thickened mitral valve. Mild mitral valve regurgitation. Aortic Valve Structurally normal aortic valve without significant sclerosis or stenosis. There is no aortic regurgitation. Tricuspid Valve Structurally normal tricuspid valve without significant stenosis or regurgitation. Pulmonary artery systolic pressure is normal. Pulmonic Valve Structurally normal pulmonic valve without significant stenosis. There is no pulmonic regurgitation. Pericardium Normal pericardium without effusion. Aorta Normal ascending aorta dimension. IVC The inferior vena cava appears normal. CONCLUSIONS Normal left ventricular size, systolic function and wall thickness, with no regional wall motion abnormalities. Left ventricular ejection fraction is estimated at 60 %. Grade II/IV diastolic dysfunction, moderately elevated filling pressures. Mildly increased left atrial size. Thickened mitral valve. Mild mitral valve regurgitation. Right atrial pressure is around 5 mm of mercury. Surinder Mcqueen MD (Electronically Signed) Final Date: 27 November 2023 17:50 S
== END 2023-11-26 12:31 | disposition home or self-care (01) ==
LOC: RAD 12:30
PROVIDERS: PCP Nurse Practitioner; Visit Provider Internal Medicine
DX: I50.30 Unspecified diastolic (congestive) heart failure (principal); I34.81 Nonrheumatic mitral (valve) annulus calcification; I50.1 Left ventricular failure, unspecified; M79.606 Pain in leg, unspecified
CPT/HCPCS: 93306; 93925

== ENCOUNTER → 2023-12-26 12:05 | Outpatient (BNVA) | payer MEDICAID, SELFPAY | PROVIDERS: PCP Nurse Practitioner; Visit Provider Internal Medicine | DX: I13.10 Hypertensive heart and chronic kidney disease without heart failure, with stage 1 through stage 4 chronic kidney disease, or unspecified chronic kidney disease (principal); N18.31 Chronic kidney disease, stage 3a; E78.2 Mixed hyperlipidemia; I73.9 Peripheral vascular disease, unspecified; R06.09 Other forms of dyspnea; F17.210 Nicotine dependence, cigarettes, uncomplicated | CPT/HCPCS: 99214 ==

== ENCOUNTER → 2024-01-02 10:51 | Outpatient (BNVA) | payer MEDICAID, SELFPAY | PROVIDERS: PCP Nurse Practitioner; Visit Provider Nurse Practitioner | DX: N18.31 Chronic kidney disease, stage 3a (principal) | CPT/HCPCS: 81000 ==

== ENCOUNTER → 2024-08-28 16:25 | Outpatient (BNVA) | payer MEDICAID, SELFPAY | PROVIDERS: PCP Nurse Practitioner; Visit Provider Nurse Practitioner | DX: I10 Essential (primary) hypertension (principal); E78.2 Mixed hyperlipidemia; E55.9 Vitamin D deficiency, unspecified | CPT/HCPCS: 80053; 80061; 82306; 84443; 85025 ==

== ENCOUNTER → 2024-12-25 10:52 | Outpatient (BNVA) | payer MEDICAID, SELFPAY | PROVIDERS: PCP Nurse Practitioner; Visit Provider Nurse Practitioner | DX: N26.1 Atrophy of kidney (terminal) (principal) | CPT/HCPCS: 74018 ==